=== PATIENT | male | born 1945 | race Caucasian/White ===

== ENCOUNTER → 2021-12-19 | Outpatient (REF) | payer BC | LOC: M LAB REF 17:14 | PROVIDERS: ATTEND Ophthalmology | DX: L82.1 Other seborrheic keratosis (principal) ==

== ENCOUNTER → 2023-04-28 | Outpatient (REF) | payer MEDICARE, BC | LOC: M SFHCDERM 17:40 | PROVIDERS: ATTEND Physician Assistant | DX: C44.612 Basal cell carcinoma of skin of right upper limb, including shoulder (principal) ==

== ENCOUNTER → 2024-11-28 | Outpatient (REF) | payer MEDICARE, BC | LOC: M SFHCDERM 18:20 | PROVIDERS: ATTEND Physician Assistant | DX: D48.9 Neoplasm of uncertain behavior, unspecified (principal); C44.619 Basal cell carcinoma of skin of left upper limb, including shoulder ==

== ENCOUNTER → 2024-12-19 | Outpatient (REF) | payer MEDICARE, BC | LOC: M SFHCDERM 18:34 | PROVIDERS: ATTEND Physician Assistant | DX: C44.91 Basal cell carcinoma of skin, unspecified (principal); L82.1 Other seborrheic keratosis ==